=== PATIENT | male | born 1945 | race Caucasian/White ===

== ENCOUNTER 2017-03-27 13:59 | Inpatient (IN) | payer MEDICARE, OTHER ==
[~2017-03-27] VITALS: Ht 167.6 cm; Wt 89.4 kg
[2017-03-27] MEDS ORDERED: SODIUM CHLORIDE 0.9% 1L BAG IV* STA (16:59)
[2017-03-27] MEDS ORDERED: CEFTAZIDIME 2GM/50 ML (PMX) 50 ML IVPB ONE (17:00)
[2017-03-27 17:26] LABS: ADD SCAN DIFF NO
[2017-03-27 17:43] LABS: INR 1.02; PROTIME 13.4 Sec (12.2-14.2)
[2017-03-27 17:44] LABS: PARTIAL THROMBOPLASTIN TIME 30.3 Sec (25.0-35.0)
--- NOTE | 2017-03-27 17:44 | RADRPT ---
PROCEDURE: CHEST 1VW CLINICAL INDICATION: Painful urination TECHNIQUE: Single frontal view of the chest was obtained COMPARISON: None. FINDINGS: Left humeral head replacement is seen. The cardiac size is normal. Aortic vascular calcifications are demonstrated. There is no pulmonary vascular congestion. The lungs are clear. No consolidation, effusion, or pneumothorax. Mild degenerative changes of the visualized osseous structures are visualized. IMPRESSION: 1. No acute cardiopulmonary process. 2. Atherosclerosis. RPTAT:PP .Magnus Lucero MD, MD Date Time Electronically viewed and signed by .Magnus Lucero MD, MD on 03/27/2017 17:43 .V/
[2017-03-27 18:10] LABS: BASOPHILS % 0.2 % (0.0-2.0); EOSINOPHILS # 0.1 10^3/ul (0.0-0.5); EOSINOPHILS % 0.4 % (0.0-7.0); HEMATOCRIT 45.6 % (42.0-52.0); HEMOGLOBIN 15.3 g/dl (14.0-18.0); LYMPHOCYTES # 3.2 10^3/ul (0.8-2.9); LYMPHOCYTES % 25.6 % (15.0-51.0); MEAN CORPUSCULAR HEMOGLOBIN 27.8 pg (29.0-33.0); MEAN CORPUSCULAR HGB CONC 33.6 g/dl (32.0-37.0); MEAN CORPUSCULAR VOLUME 82.8 fl (82.0-101.0); MEAN PLATELET VOLUME 10.2 fl (7.4-10.4); MONOCYTE # 0.6 10^3/ul (0.3-0.9); MONOCYTES % 4.9 % (0.0-11.0); NEUTROPHIL # 8.5 10^3/ul (1.6-7.5); PLATELET COUNT 350 10^3/UL (140-415); RED BLOOD COUNT 5.51 10^6/ul (4.70-6.10); RED CELL DISTRIBUTION WIDTH 14.6 % (11.5-14.5); WHITE BLOOD COUNT 12.5 10^3/ul (4.8-10.8)
[2017-03-27 18:30] VITALS: TEMP 98.1
[2017-03-27] MEDS ORDERED: ACETAMINOPHEN 325 MG TAB PO PRN (18:30)
[2017-03-27] MEDS ORDERED: ONDANSETRON 4 MG INJ IV PRN ×2 (18:30→19:00)
[2017-03-27 19:01] LABS: ALBUMIN 4.4 g/dl (3.3-4.9); ALBUMIN/GLOBULIN RATIO 1.33; BILIRUBIN,INDIRECT 0.3 mg/dl (0-1.1); BILIRUBIN,TOTAL 0.3 mg/dl (0.2-1.3); CALCIUM 9.7 mg/dl (8.4-10.2); CREATININE 0.94 mg/dl (0.61-1.24); POTASSIUM 4.6 mmol/L (3.5-5.1); TOTAL PROTEIN 7.7 g/dl (6.1-8.1)
--- NOTE | 2017-03-27 19:31 | ERA ---
ER Documentation Chief Complaint Date/Time DATE: 03/27/17 TIME: 19:27 Chief Complaint URINE RETENTION AND PAIN WITH URINATION HPI 71yoM with a history of BPH who presents after Dr. Lewis, his urologist noted he had a complicated urinary tract infection. The patient had a urinalysis that showed evidence of Pseudomonas resistant to multiple antibiotics. The patient has no complaints though he arrives with tachycardia. He denies any fevers, chills, chest pain, shortness of breath. Dr. Lewis would like the patient admitted for antibiotics and TURP in several days. ROS All systems reviewed and are negative except as per history of present illness. Allergies Allergies: Coded Allergies: No Known Drug Allergies (Verified Allergy, Unknown, 03/27/17) PMhx/Soc History of Surgery: Yes (bilat shoulder replacement) Anesthesia Reaction: No Hx Neurological Disorder: No Hx Respiratory Disorders: No Hx Cardiac Disorders: Yes (HTN, ARRHYTHMIA) Hx Psychiatric Problems: No Hx Miscellaneous Medical Probl: Yes (DM, BPH) Hx Alcohol Use: No Hx Substance Use: No Hx Tobacco Use: No Smoking Status: Former smoker FmHx Family History: No diabetes Physical Exam Vitals Vital Signs Date Time Temp Pulse Resp B/P Pulse Ox O2 Delivery O2 Flow Rate FiO2 03/27/17 18:30 98.1 106 16 147/77 100 Room Air 03/27/17 14:08 97.6 130 20 133/80 97 Physical Exam General: Well developed, well nourished, no acute distress Head: Normocephalic, atraumatic. Eyes: Pupils equally reactive, EOM intact ENT: Moist mucous membranes Neck: Supple, no lymphadenopathy Respiratory: Lungs clear bilaterally, no distress Cardiovascular: Tachycardia, no murmurs, rubs, or gallops Abdominal: Soft, non-tender, non-distended, no peritoneal signs : Deferred MSK: No edema, no unilateral swelling, 5/5 strength Neurologic: Alert and oriented, moving all extremities, normal speech, no focal weakness, no cerebellar signs Skin: No rash Psych: Normal mood Result Diagram: 03/27/17 1650 03/27/17 1650 Results 24 hrs Laboratory Tests Test 03/27/17 16:50 03/27/17 17:00 White Blood Count 12.510^3/ul Red Blood Count 5.5110^6/ul Hemoglobin 15.3g/dl Hematocrit 45.6% Mean Corpuscular Volume 82.8fl Mean Corpuscular Hemoglobin 27.8pg Mean Corpuscular Hemoglobin Concent 33.6g/dl Red Cell Distribution Width 14.6% Platelet Count 50231^3/UL Mean Platelet Volume 10.2fl Neutrophils % 68.0% Lymphocytes % 25.6% Monocytes % 4.9% Eosinophils % 0.4% Basophils % 0.2% Nucleated Red Blood Cells % 0.0/100WBC Neutrophils # 8.510^3/ul Lymphocytes # 3.210^3/ul Monocytes # 0.610^3/ul Eosinophils # 0.110^3/ul Basophils # 0.010^3/ul Nucleated Red Blood Cells # 0.010^3/ul Prothrombin Time 13.4Sec Prothrombin Time Ratio 1.0 INR International Normalized Ratio 1.02 Activated Partial Thromboplast Time 30.3Sec Sodium Level 136mmol/L Potassium Level 4.6mmol/L Chloride Level 102mmol/L Carbon Dioxide Level 25mmol/L Anion Gap 14 Blood Urea Nitrogen 22mg/dl Creatinine 0.94mg/dl Glucose Level 207mg/dl Calcium Level 9.7mg/dl Total Bilirubin 0.3mg/dl Direct Bilirubin 0.00mg/dl Indirect Bilirubin 0.3mg/dl Aspartate Amino Transf (AST/SGOT) 14IU/L Alanine Aminotransferase (ALT/SGPT) 35IU/L Alkaline Phosphatase 59IU/L Total Protein 7.7g/dl Albumin 4.4g/dl Globulin 3.30g/dl Albumin/Globulin Ratio 1.33 Lactic Acid Level 1.9mmol/L Current Medications Medications (Trade) Dose Ordered Sig/Дмитрий Route PRN Reason Start Time Stop Time Status Last Admin Dose Admin Sodium Chloride 2700 ml 2,700 ml BOLUS OVER 2 HOURS STAT IV* 03/27/17 16:59 03/27/17 17:01 DC 03/27/17 17:18 Ceftazidime/ Dextrose (Fortaz 2gm/50 ml (Pmx)) 50 ml @ 100 mls/hr ONCE ONCE IVPB 03/27/17 17:00 03/27/17 17:29 DC 03/27/17 17:37 Ondansetron HCl (Zofran Inj) 4 mg BRIDGE ORDER PRN IV NAUSEA AND/OR VOMITING 03/27/17 18:30 03/28/17 18:29 Acetaminophen (Tylenol Tab) 650 mg ER BRIDGE PRN PO MILD PAIN/FEVER 03/27/17 18:30 03/28/17 18:29 Lorazepam (Ativan) 0.5 mg ONCE ONCE IV 03/27/17 19:00 03/27/17 19:01 UNV Morphine Sulfate 2 mg 2 mg Q4H PRN IV pain 03/27/17 19:00 UNV Ceftazidime (Fortaz 1gm/50 ml (Pmx)) 50 ml @ 100 mls/hr Q8 IVPB 03/27/17 22:00 UNV Ondansetron HCl (Zofran Inj) 4 mg Q6H PRN IV NAUSEA AND/OR VOMITING 03/27/17 19:00 UNV Famotidine (Pepcid) 20 mg BID PO 03/27/17 21:00 UNV Insulin Aspart (Novolog Insulin Pen) NOVOLOG *MODERATE* ALGORITHM WITH MEALS BEDTIME SC 03/27/17 21:00 UNV Miscellaneous Information (* Miscellaneous Pharmacy Order) HYPOGLYCEMIA PROTOCOL w... ONCE ONCE XX 03/27/17 19:00 03/27/17 19:01 UNV Miscellaneous Information (* Miscellaneous Pharmacy Order) Discontinue all previ... ONCE ONCE XX 03/27/17 19:00 03/27/17 19:01 UNV Empaglifozin (Jardiance) 10 mg DAILY@08 PO 03/28/17 08:00 UNV Metformin HCl (Glucophage) 500 mg BID WITH MEALS PO 03/28/17 08:00 UNV Amlodipine Besylate (Norvasc) 10 mg DAILY PO 03/28/17 09:00 UNV Procedures/MDM EKG, MONITORS, & DIAGNOSTIC IMAGING: EKG: I reviewed and interpreted a 12-lead EKG. Rhythm: Slight sinus tachycardia Ectopy: None Intervals: No abnormalities ST segments: No elevations or depressions T waves: No contiguous inversions Chest x-ray: I reviewed and interpreted a 1 view of the chest Mediastinum: No enlargement Cardiac silhouette: No cardiomegaly Airspace: Clear lung solorzano bilaterally without evidence of pneumothorax Bones: No evidence of fracture LAB INTERPRETATION: Leukocytosis of 12.5, normal lactic acid MEDICAL DECISION MAKING: The patient presents with complicated UTI and tachycardia. He will need sepsis screening. The patient is otherwise hemodynamically stable and well-appearing is a benign abdominal examination. The patient sensitivities showed sensitivity to ceftazidime. ER COURSE: Blood cultures been taken. The patient was given IV fluids. The patient has evidence of Sirs with a source consistent with sepsis but no evidence of endorgan dysfunction. This is not consistent with severe sepsis. The patient has received a 30/kg bolus of saline. Blood cultures been taken the patient was given ceftaz. He remains hemodynamically stable and does not require pressors or central line. Heart rate is improved. I kept the patient and/or family informed of laboratory and diagnostic imaging results throughout the emergency room course. DISPOSITION PLAN: Medical surgical admission CONSULTATION: Accepting care team and consultations: I discussed the current laboratory data, diagnostic imaging and emergency care provided. Admitting team: Dr. Romero Admitting team indication: Insurance directed Consulting services: Dr. Lewis, urology Of note the patient does not meet severe sepsis criteria in the emergency department therefore does not require repeat volume assessment. Departure Diagnosis: Primary Impression: Urinary tract infection Qualified Code: N30.00 - Acute cystitis without hematuria Additional Impression: Sepsis Qualified Code: A41.52 - Sepsis due to Pseudomonas species Condition: Stable SEVEN LAUREN MD March 27, 2017 19:31
[2017-03-27] MEDS ORDERED: LORAZEPAM 2 MG INJ IV ONE (19:42)
[2017-03-27] MEDS ORDERED: AMLO-147 PO (19:48)
[2017-03-27] MEDS ORDERED: EMPA10TA PO (19:49)
[2017-03-27] MEDS ORDERED: IBUP400T22 PO (19:50)
[2017-03-27] MEDS ORDERED: METO100T13 PO (19:51)
[2017-03-27] MEDS ORDERED: MTF1000T PO (19:51)
[2017-03-27] MEDS ORDERED: TAMS0.4C2 PO (19:51)
[2017-03-27] MEDS ORDERED: GLIM2TAB PO (19:52)
[2017-03-27] MEDS ORDERED: ENAL5TAB PO (19:52)
[2017-03-27] MEDS ORDERED: DEXTROSE 50% 50 ML SYRINGE IV PRN ×2 (20:00)
[2017-03-27] MEDS ORDERED: GLUCOSE GEL 15 GRAM TUBE BUCCAL PRN (20:00)
[2017-03-27] MEDS ORDERED: GLUCOSE GEL 15 GRAM TUBE PO PRN ×2 (20:00)
[2017-03-27] MEDS ORDERED: GLUCAGON 1 MG INJ IM PRN (20:00)
[2017-03-27 21:30] VITALS: BP 133/79; PULSE 88; RESP 20
[2017-03-27] MEDS: INSULIN ASPART [NOVOLOG] 3 ML PEN SC SCH (22:00)
[2017-03-27 22:20] VITALS: Ht 167.6 cm; Wt 89.4 kg
--- NOTE | 2017-03-28 01:26 | CONS ---
DATE OF ADMISSION: 03/27/2017 DATE OF CONSULTATION: 03/27/2017 ADMITTING PHYSICIAN: Dr. Byron Romero Dear Dr. Romero: Thank you for helping me and allowing me to help care for this patient. HISTORY OF PRESENT ILLNESS: This is a 71-year-old male who has a history of an enlarged prostate an d has undergone transurethral microwave treatment of the prostate 2 years ago by another urologist, Dr. Curry. However, the patient states that he is still having problems and he does have recurre nt urinary tract infection that is not responding to medications at home, in fact a urine culture th at I did recently on him showed that he has Pseudomonas and that is resistant to oral antibiotic. T he patient states that he has nocturia about 10 times during the night and during the day he does h[place] ve urinary frequency, dysuria, urgency, and sometimes few drops of urine comes out before onto his u nderwear before he reaches the bathroom. PAST MEDICAL HISTORY: He is known to have diabetes type 2 and history of hypertension. The patient denies any history of dyslipidemia. PAST SURGICAL HISTORY: He has had prostate biopsy 2 years ago before undergoing the transurethral m icrowave treatment of the prostate and he does have mild elevation of the PSA at 4.1 and that could be related to the fact that he does have an infection. ALLERGIES: HE HAS NO DRUG ALLERGIES. SOCIAL HISTORY: He does not smoke or drink any alcohol. He, however, does have some cardiac arrhyt hmias. MEDICATIONS: He has been on at home include: 1. Metformin 850 mg twice a day. 2. Glimepiride 2 mg twice a day. 3. Norvasc 10 mg daily. 4. Metoprolol 100 mg daily. 5. Tamsulosin 0.4 mg daily. 6. Vasotec 5 mg daily. 7. Finasteride 5 mg daily. PHYSICAL EXAMINATION: GENERAL: Reveals an elderly male who weighs 87 kg and he is 66 inches tall. VITAL SIGNS: His temperature is 98.1, blood pressure 147/77, pulse is 106, respirations are 16. HEAD AND NECK: Unremarkable. There is no cervical adenopathy. Neck is supple. ABDOMEN: Soft. There is no abdominal mass palpable. GENITALIA: External genitalia are normal. RECTAL: Examination revealed large and soft prostate. The patient was worked up in my office before on March 21 and his postvoid residual was 91 mL and the prostate was large and it was about 62 g. The urine culture did show more than 100,000 colony p er mL of Pseudomonas aeruginosa that is sensitive to cefepime, sensitive to ceftazidime, resistant t o Cipro, resistant to gentamicin, sensitive to imipenem, resistant to Levaquin, sensitive to piperac illin tazobactam and sensitive to tobramycin. IMPRESSION: Persistent urinary tract infection with Pseudomonas aeruginosa that is resistant to the oral antibiotic and the patient does have an enlarged prostate with high postvoid residual and that could be the reason for him to keep having the infections. Because of the high postvoid residual, also he could have the bacteria into his prostate. PLAN: The plan is to give him the IV antibiotics and also after about 4 days of IV antibiotic, I sh all go ahead and do a transurethral resection of the prostate on him. I have discussed these with marielos almanza in detail as well as with his daughter, Shanna. I explained to them the benefits, the results and that most likely he will do better and he will do good; however, there is no guarantee that he will not have any more infection and that he will be able to empty his bladder completely but I think wi th the obstruction that he has, the high postvoid residual and the fact that he has not had the intr avenous antibiotic to manage this infection, he should hopefully respond well. I will continue heidy andrea care of his urological problem and I do thank you for helping in his medical management. Dictated By: GABRIEL CORRAL/NAIMA Conf#: [id number] DID#: [id number]
--- NOTE | 2017-03-28 02:00 | HP ---
DATE OF ADMISSION: 03/27/2017 PRESENTING COMPLAINT: The patient was sent by urologist, Dr. Lewis, for admission. HISTORY OF PRESENTING COMPLAINT: A 71-year-old male with a history of BPH who has been having urina ry symptoms and has been worked up by the urologist, Dr. Lewis, as an outpatient. The patient had recently had a urinalysis and urine culture done by Dr. Lewis and was treated with oral antibioti cs Keflex. However, upon review of the urine culture results, it was found to grow pseudomonas that was resistant to multiple oral antibiotics; hence, Dr. Lewis sent him in for IV antibiotic regime n. The plan also is that the patient would get a TURP procedure while he is in house. At this time , the patient has no other new complaints. There is no fever. He denies abdominal pain. He is sli ghtly anxious about his hospitalization. Denies chest pain. Denies history of . Denies heart attacks or stroke. PAST MEDICAL HISTORY: High blood pressure, diabetes mellitus, BPH. PAST SURGICAL HISTORY: He has had bilateral shoulder surgery. ALLERGIES: NO KNOWN DRUG ALLERGIES. SOCIAL HISTORY: Denies tobacco, alcohol or illicit drug use. FAMILY HISTORY: Positive for stroke in his father and his brother. HOME MEDICATIONS: Have been reviewed and reconciled. PHYSICAL EXAMINATION: VITAL SIGNS: Temperature 98.1, pulse 130, respirations 20, blood pressure 133/80, saturations 97% o n room air. GENERAL: The patient was somewhat anxious, per his daughter. He has never been hospitalized before and this was of concern to him. HEENT: Head is normocephalic. Pupils are equal round and reactive. Mucous membranes are moist. P osterior pharynx is clear of exudate. NECK: Supple without adenopathy or JVD. CHEST: Clear to auscultation. CARDIOVASCULAR: S1, S2. No murmurs. ABDOMEN: Soft, nontender, nondistended with normoactive bowel sounds. EXTREMITIES: No lower extremity edema. SKIN: Devoid of rash or jaundice. PSYCHIATRIC: Anxious. LABORATORY VALUES: Leukocytosis of 12,000, normal hemoglobin, normal platelet count. On his basic metabolic profile, his BUN was also slightly elevated at 22 and his glucose was elevated at . His liver profile was negative. Lactic acid was normal. Urinalysis was reviewed and highly suggest ethan of a UTI and culture results were also reviewed and it did show multidrug resistant Pseudomonas aeruginosa. IMAGING: Chest x-ray showed atherosclerosis. EKG showed normal sinus rhythm. ASSESSMENT: This is a 71-year-old male with: 1. Multidrug resistant Pseudomonas urinary tract infection. 2. Benign prostatic hypertrophy. 3. Diabetes with suboptimal control. 4. High blood pressure with good control. 5. Mild tachycardia, likely as the result of mild systemic inflammatory response syndrome secondary to #1. PLAN OF CARE: To begin empiric IV antibiotics based on sensitive profile. Repeat cultures. Notify Dr. Lewis that the patient is in the hospital. As mentioned earlier, I believe the patient is pl anned for TURP during this hospitalization; however, we will defer to Dr. Lewis on that. For prop hylaxis, he will be on Pepcid and SCDs. I have spoken with the patient in detail. I have spoken wi th his daughter and we have discussed plan of care and they have both verbalized understanding. Dictated By: JACINDA TSANG MD BA/NTS Conf#: [id number] DID#: [id number]
[2017-03-28] MEDS: CEFTAZIDIME 1GM/50 ML (PMX) 50 ML IVPB SCH ×3 (02:18→15:09)
[2017-03-28] MEDS: INSULIN ASPART [NOVOLOG] 3 ML PEN SC SCH ×4 (07:51→22:00)
[2017-03-28 07:59] VITALS: BP 156/75; RESP 18
[2017-03-28] MEDS: AMLODIPINE 10 MG TAB PO SCH (08:23)
[2017-03-28] MEDS: metFORMIN 500 MG TAB PO SCH ×2 (08:23→18:09)
[2017-03-28] MEDS: FAMOTIDINE 20 MG TAB PO SCH ×2 (08:23→21:59)
[2017-03-28] MEDS: EMPAGLIFLOZIN 10 MG TABLET PO SCH (08:23)
[2017-03-28 10:48] VITALS: BP 138/70; PULSE 80
[2017-03-28 10:49] LABS: ADD SCAN DIFF NO
[2017-03-28 10:55] LABS: BASOPHILS % 0.3 % (0.0-2.0); EOSINOPHILS # 0.1 10^3/ul (0.0-0.5); EOSINOPHILS % 0.9 % (0.0-7.0); HEMATOCRIT 41.8 % (42.0-52.0); HEMOGLOBIN 14.1 g/dl (14.0-18.0); LYMPHOCYTES # 2.6 10^3/ul (0.8-2.9); LYMPHOCYTES % 29.2 % (15.0-51.0); MEAN CORPUSCULAR HEMOGLOBIN 27.6 pg (29.0-33.0); MEAN CORPUSCULAR HGB CONC 33.7 g/dl (32.0-37.0); MEAN CORPUSCULAR VOLUME 81.8 fl (82.0-101.0); MEAN PLATELET VOLUME 9.9 fl (7.4-10.4); MONOCYTE # 0.5 10^3/ul (0.3-0.9); MONOCYTES % 5.9 % (0.0-11.0); NEUTROPHIL # 5.5 10^3/ul (1.6-7.5); NEUTROPHILS % 62.7 % (39.0-77.0); PLATELET COUNT 315 10^3/UL (140-415); RED BLOOD COUNT 5.11 10^6/ul (4.70-6.10); RED CELL DISTRIBUTION WIDTH 14.1 % (11.5-14.5); WHITE BLOOD COUNT 8.8 10^3/ul (4.8-10.8)
[2017-03-28 12:02] LABS: THYROID STIMULATING HORMONE 1.38 MIU/L (0.465-4.680)
[2017-03-28 12:11] LABS: ALBUMIN 3.8 g/dl (3.3-4.9); BILIRUBIN,INDIRECT 0.5 mg/dl (0-1.1); BILIRUBIN,TOTAL 0.5 mg/dl (0.2-1.3); CALCIUM 8.9 mg/dl (8.4-10.2); CHOL/HDL RATIO 5.9 RATIO; CREATININE 0.72 mg/dl (0.61-1.24); MAGNESIUM 1.9 mg/dl (1.7-2.5); TOTAL PROTEIN 7.2 g/dl (6.1-8.1)
--- NOTE | 2017-03-28 14:14 | PN ---
Date/Time of Note Date/Time of Note DATE: 03/28/17 TIME: 14:11 Assessment/Plan VTE Prophylaxis VTE Prophylaxis Intervention: ambulation, SCD's Lines/Catheters IV [facility]from [facility] Saline Lock Urinary Cath still in place: No Assessment/Plan Assessment/Plan This is a 71-year-old male with: 1. Multidrug resistant Pseudomonas urinary tract infection. 2. Benign prostatic hypertrophy with LUTS 3. Diabetes type 2; good control. 4. High blood pressure with good control. 5. Mild tachycardia, likely as the result of mild systemic inflammatory response syndrome secondary to #1. PLAN OF CARE: * Continue abx / supportive care / TURP planned for Friday. Subjective 24 Hr Interval Summary Free Text/Dictation Patient seen and evaluated. Complains of dysuria, poor urinary stream. Refusing Pardo catheter however. Exam/Review of Systems Vital Signs Vitals Vital Signs Date Time Temp Pulse Resp B/P Pulse Ox O2 Delivery O2 Flow Rate FiO2 03/28/17 10:48 80 138/70 03/28/17 07:59 97.8 18 97 03/27/17 21:30 Room Air Intake and Output 03/27/17 03/27/17 03/28/17 15:00 23:00 07:00 Intake Total 240 ml Balance 240 ml Exam GENERAL: still mildly anxious, A and O X3, afebrile, no distress HEENT: Head is normocephalic. Pupils are equal round and reactive. Mucous membranes are moist. Posterior pharynx is clear of exudate. NECK: Supple without adenopathy or JVD. CHEST: Clear to auscultation. CARDIOVASCULAR: S1, S2. No murmurs. ABDOMEN: Soft, nontender, nondistended with normoactive bowel sounds. EXTREMITIES: No lower extremity edema. SKIN: Devoid of rash or jaundice. PSYCHIATRIC: Anxious. Results Result Diagram: 03/28/17 1025 03/28/17 1025 Results 24 hrs Laboratory Tests Test 03/27/17 16:50 03/27/17 17:00 03/27/17 18:59 03/27/17 20:52 White Blood Count 12.5 H Red Blood Count 5.51 Hemoglobin 15.3 Hematocrit 45.6 Mean Corpuscular Volume 82.8 Mean Corpuscular Hemoglobin 27.8 L Mean Corpuscular Hemoglobin Concent 33.6 Red Cell Distribution Width 14.6 H Platelet Count 350 Mean Platelet Volume 10.2 Neutrophils % 68.0 Lymphocytes % 25.6 Monocytes % 4.9 Eosinophils % 0.4 Basophils % 0.2 Nucleated Red Blood Cells % 0.0 Neutrophils # 8.5 H Lymphocytes # 3.2 H Monocytes # 0.6 Eosinophils # 0.1 Basophils # 0.0 Nucleated Red Blood Cells # 0.0 Prothrombin Time 13.4 Prothrombin Time Ratio 1.0 INR International Normalized Ratio 1.02 Activated Partial Thromboplast Time 30.3 Sodium Level 136 Potassium Level 4.6 Chloride Level 102 Carbon Dioxide Level 25 Anion Gap 14 Blood Urea Nitrogen 22 H Creatinine 0.94 Glucose Level 207 Calcium Level 9.7 Total Bilirubin 0.3 Direct Bilirubin 0.00 Indirect Bilirubin 0.3 Aspartate Amino Transf (AST/SGOT) 14 L Alanine Aminotransferase (ALT/SGPT) 35 Alkaline Phosphatase 59 Total Protein 7.7 Albumin 4.4 Globulin 3.30 H Albumin/Globulin Ratio 1.33 Lactic Acid Level 1.9 1.4 1.7 Test 03/27/17 22:11 03/28/17 07:49 03/28/17 10:25 03/28/17 11:51 Bedside Glucose 163 121 92 White Blood Count 8.8 # Red Blood Count 5.11 Hemoglobin 14.1 Hematocrit 41.8 L Mean Corpuscular Volume 81.8 L Mean Corpuscular Hemoglobin 27.6 L Mean Corpuscular Hemoglobin Concent 33.7 Red Cell Distribution Width 14.1 Platelet Count 315 Mean Platelet Volume 9.9 Neutrophils % 62.7 Lymphocytes % 29.2 Monocytes % 5.9 Eosinophils % 0.9 Basophils % 0.3 Nucleated Red Blood Cells % 0.0 Neutrophils # 5.5 Lymphocytes # 2.6 Monocytes # 0.5 Eosinophils # 0.1 Basophils # 0.0 Nucleated Red Blood Cells # 0.0 Sodium Level 134 L Potassium Level 4.0 Chloride Level 102 Carbon Dioxide Level 23 Anion Gap 13 Blood Urea Nitrogen 14 Creatinine 0.72 Glucose Level 168 Hemoglobin A1c 7.7 H Calcium Level 8.9 Magnesium Level 1.9 Total Bilirubin 0.5 Direct Bilirubin 0.00 Indirect Bilirubin 0.5 Aspartate Amino Transf (AST/SGOT) 27 # Alanine Aminotransferase (ALT/SGPT) 33 Alkaline Phosphatase 50 Total Protein 7.2 Albumin 3.8 Triglycerides Level 130 Cholesterol Level 167 LDL Cholesterol, Calculated 113 HDL Cholesterol 28 L Cholesterol/HDL Ratio 5.9 Thyroid Stimulating Hormone (TSH) 1.380 Medications Medications Current Medications Morphine Sulfate 2 mg 2 mg Q4H PRN IV pain; Start 03/27/17 at 19:00 Ceftazidime (Fortaz 1gm/50 ml (Pmx)) 50 ml @ 100 mls/hr Q8 IVPB Last administered on 03/28/17 05:26; Admin Dose 100 MLS/HR; Start 03/27/17 at 23:30 Ondansetron HCl (Zofran Inj) 4 mg Q6H PRN IV NAUSEA AND/OR VOMITING; Start 03/27 at 19:00 Famotidine (Pepcid) 20 mg BID PO Last administered on 03/28/17 08:23; Admin Dose 20 MG; Start 03/28/17 at 09:00 Empaglifozin (Jardiance) 10 mg DAILY@08 PO Last administered on 03/28/17 08:23 ; Admin Dose 10 MG; Start 03/28/17 at 08:00 Amlodipine Besylate (Norvasc) 10 mg DAILY PO Last administered on 03/28/17 08: 23; Admin Dose 10 MG; Start 03/28/17 at 09:00 Miscellaneous Information 1 ea NOTE XX ; Start 03/27/17 at 20:00 Glucose (Glutose) 15 gm Q15M PRN PO DECREASED GLUCOSE; Start 03/27/17 at 20:00 Glucose (Glutose) 22.5 gm Q15M PRN PO DECREASED GLUCOSE; Start 03/27/17 at 20:00 Dextrose (D50w Syringe) 25 ml Q15M PRN IV DECREASED GLUCOSE; Start 03/27/17 at 20:00 Dextrose (D50w Syringe) 50 ml Q15M PRN IV DECREASED GLUCOSE; Start 03/27/17 at 20:00 Glucagon (Glucagen) 1 mg Q15M PRN IM DECREASED GLUCOSE; Start 03/27/17 at 20:00 Glucose (Glutose) 15 gm Q15M PRN BUCCAL DECREASED GLUCOSE; Start 03/27/17 at 20: 00 Tamsulosin HCl (Flomax) 0.4 mg DAILY@21 PO ; Start 03/28/17 at 21:00 JACINDA TSANG March 28, 2017 14:13
[2017-03-28 20:53] VITALS: BP 159/87; RESP 20
[2017-03-28] MEDS: TAMSULOSIN (SR) 0.4 MG CAP PO SCH (21:59)
[2017-03-29] MEDS: CEFTAZIDIME 1GM/50 ML (PMX) 50 ML IVPB SCH ×4 (00:02→21:38)
--- NOTE | 2017-03-29 05:00 | PN ---
DATE: 03/28/2017 SUBJECTIVE: Dysuria and urinary frequency and urinary tract infection. The patient is feeling bett er today. OBJECTIVE: VITAL SIGNS: His temperature is 97.8, blood pressure 138/70, pulse is 80, respiration is 18. ABDOMEN: Soft. There is no abdominal mass palpable. GENITOURINARY: External genitalia are normal. The patient is voiding and the urine is clear. LABORATORY DATA: CBC yesterday shows a white count of 12.5, today is 8.8, hemoglobin was 15.3, toda y is 14.1, platelet count 315,000. BUN is 14, creatinine 0.72, sodium 134, potassium 4.0, chloride 102, CO2 of 23. PT is 13.4 and INR is 1.02. The blood cultures are negative after 1 day. The ches t x-ray also no acute cardiopulmonary process. Atherosclerosis. IMPRESSION: Urinary tract infection with pseudomonas that is resistant to oral antibiotics and perla gn prostatic hypertrophy with obstruction. PLAN: To continue the intravenous antibiotic, and in about 3 days then we will do a cystoscopy and transurethral resection of the prostate with the hope that he empties his bladder better and to prev ent recurrence of his infections. Dictated By: GABRIEL CORRAL/NAIMA Conf#: [id number] DID#: [id number]
[2017-03-29 08:00] VITALS: BP 139/82; RESP 16
[2017-03-29] MEDS: INSULIN ASPART [NOVOLOG] 3 ML PEN SC SCH ×4 (08:00→21:00)
[2017-03-29] MEDS: EMPAGLIFLOZIN 10 MG TABLET PO SCH (08:28)
[2017-03-29] MEDS: AMLODIPINE 10 MG TAB PO SCH ×2 (08:29→08:34)
[2017-03-29] MEDS: metFORMIN 500 MG TAB PO SCH ×2 (08:29→17:46)
[2017-03-29] MEDS: FAMOTIDINE 20 MG TAB PO SCH ×2 (08:31→21:00)
--- NOTE | 2017-03-29 09:39 | PN ---
Date/Time of Note Date/Time of Note DATE: 03/29/17 TIME: 09:35 Assessment/Plan VTE Prophylaxis VTE Prophylaxis Intervention: SCD's Lines/Catheters IV [facility]from [facility] Saline Lock Urinary Cath still in place: No (surgery on 03/31/2017) Assessment/Plan Assessment/Plan This is a 71-year-old male with: 1. Multidrug resistant Pseudomonas urinary tract infection. 2. Benign prostatic hypertrophy with LUTS 3. Diabetes type 2; good control in house, A1C: 7.7 however 4. High blood pressure with good control. 5. Mild tachycardia, likely as the result of mild systemic inflammatory response syndrome secondary to #1 : improved PLAN OF CARE: * We discussed A1C and diabetic control, patient has good in-house control on his home regimen therefore the problem is likely poor dietary control at home. We discussed appropriate diet and will have hothouse worker consult to educate on a good low carbohydrate diet. We also discussed blood sugar goals, and I encouraged him that he was unable to meet his goals at home he needed to notify his primary doctor or integration technician to adjust his medicines. At this time however I will not be changing his dosing as he has good in-house control. * Continue abx / supportive care / TURP planned for Friday. Subjective 24 Hr Interval Summary Constitutional: improved (dysuria), no complaints Exam/Review of Systems Vital Signs Vitals Vital Signs Date Time Temp Pulse Resp B/P Pulse Ox O2 Delivery O2 Flow Rate FiO2 03/28/17 20:53 97.6 92 20 159/87 95 03/27/17 21:30 Room Air Intake and Output 03/28/17 03/28/17 03/29/17 15:00 23:00 07:00 Intake Total 890 ml 730 ml Output Total 1200 ml Balance -310 ml 730 ml Exam GENERAL: , A and O X3, afebrile, no distress HEENT: Head is normocephalic. Pupils are equal round and reactive. Mucous membranes are moist. Posterior pharynx is clear of exudate. NECK: Supple without adenopathy or JVD. CHEST: Clear to auscultation. CARDIOVASCULAR: S1, S2. No murmurs. ABDOMEN: Soft, nontender, nondistended with normoactive bowel sounds. EXTREMITIES: No lower extremity edema. SKIN: Devoid of rash or jaundice. PSYCHIATRIC: calm. Results Result Diagram: 5/5/17 1025 03/28/17 1025 Results 24 hrs Laboratory Tests Test 03/28/17 10:25 03/28/17 11:51 03/28/17 17:48 03/28/17 21:58 White Blood Count 8.8 # Red Blood Count 5.11 Hemoglobin 14.1 Hematocrit 41.8 L Mean Corpuscular Volume 81.8 L Mean Corpuscular Hemoglobin 27.6 L Mean Corpuscular Hemoglobin Concent 33.7 Red Cell Distribution Width 14.1 Platelet Count 315 Mean Platelet Volume 9.9 Neutrophils % 62.7 Lymphocytes % 29.2 Monocytes % 5.9 Eosinophils % 0.9 Basophils % 0.3 Nucleated Red Blood Cells % 0.0 Neutrophils # 5.5 Lymphocytes # 2.6 Monocytes # 0.5 Eosinophils # 0.1 Basophils # 0.0 Nucleated Red Blood Cells # 0.0 Sodium Level 134 L Potassium Level 4.0 Chloride Level 102 Carbon Dioxide Level 23 Anion Gap 13 Blood Urea Nitrogen 14 Creatinine 0.72 Glucose Level 168 Hemoglobin A1c 7.7 H Calcium Level 8.9 Magnesium Level 1.9 Total Bilirubin 0.5 Direct Bilirubin 0.00 Indirect Bilirubin 0.5 Aspartate Amino Transf (AST/SGOT) 27 # Alanine Aminotransferase (ALT/SGPT) 33 Alkaline Phosphatase 50 Total Protein 7.2 Albumin 3.8 Triglycerides Level 130 Cholesterol Level 167 LDL Cholesterol, Calculated 113 HDL Cholesterol 28 L Cholesterol/HDL Ratio 5.9 Thyroid Stimulating Hormone (TSH) 1.380 Bedside Glucose 92 107 120 Test 03/29/17 07:41 Bedside Glucose 141 Medications Medications Current Medications Morphine Sulfate 2 mg 2 mg Q4H PRN IV pain; Start 03/27/17 at 19:00 Ceftazidime (Fortaz 1gm/50 ml (Pmx)) 50 ml @ 100 mls/hr Q8 IVPB Last administered on 03/29/17 08:28; Admin Dose 100 MLS/HR; Start 03/27/17 at 23:30 Ondansetron HCl (Zofran Inj) 4 mg Q6H PRN IV NAUSEA AND/OR VOMITING; Start 03/27 at 19:00 Famotidine (Pepcid) 20 mg BID PO Last administered on 03/28/17 21:59; Admin Dose 20 MG; Start 03/28/17 at 09:00 Empaglifozin (Jardiance) 10 mg DAILY@08 PO Last administered on 03/29/17 08:28 ; Admin Dose 10 MG; Start 03/28/17 at 08:00 Amlodipine Besylate (Norvasc) 10 mg DAILY PO Last administered on 03/29/17 08: 34; Admin Dose 10 MG; Start 03/28/17 at 09:00 Miscellaneous Information 1 ea NOTE XX ; Start 03/27/17 at 20:00 Glucose (Glutose) 15 gm Q15M PRN PO DECREASED GLUCOSE; Start 03/27/17 at 20:00 Glucose (Glutose) 22.5 gm Q15M PRN PO DECREASED GLUCOSE; Start 03/27/17 at 20:00 Dextrose (D50w Syringe) 25 ml Q15M PRN IV DECREASED GLUCOSE; Start 03/27/17 at 20:00 Dextrose (D50w Syringe) 50 ml Q15M PRN IV DECREASED GLUCOSE; Start 03/27/17 at 20:00 Glucagon (Glucagen) 1 mg Q15M PRN IM DECREASED GLUCOSE; Start 03/27/17 at 20:00 Glucose (Glutose) 15 gm Q15M PRN BUCCAL DECREASED GLUCOSE; Start 03/27/17 at 20: 00 Tamsulosin HCl (Flomax) 0.4 mg DAILY@21 PO Last administered on 03/28/17 21:59 ; Admin Dose 0.4 MG; Start 03/28/17 at 21:00 JACINDA TSANG March 29, 2017 09:39
[2017-03-29 10:37] LABS: ADD SCAN DIFF NO
[2017-03-29 10:45] LABS: BASOPHILS % 0.2 % (0.0-2.0); EOSINOPHILS # 0.1 10^3/ul (0.0-0.5); EOSINOPHILS % 0.7 % (0.0-7.0); HEMATOCRIT 43.4 % (42.0-52.0); HEMOGLOBIN 14.5 g/dl (14.0-18.0); LYMPHOCYTES # 2.1 10^3/ul (0.8-2.9); LYMPHOCYTES % 24.8 % (15.0-51.0); MEAN CORPUSCULAR HEMOGLOBIN 27.4 pg (29.0-33.0); MEAN CORPUSCULAR HGB CONC 33.4 g/dl (32.0-37.0); MEAN CORPUSCULAR VOLUME 81.9 fl (82.0-101.0); MONOCYTE # 0.5 10^3/ul (0.3-0.9); MONOCYTES % 5.4 % (0.0-11.0); NEUTROPHIL # 5.7 10^3/ul (1.6-7.5); NEUTROPHILS % 68.3 % (39.0-77.0); PLATELET COUNT 304 10^3/UL (140-415); RED CELL DISTRIBUTION WIDTH 14.5 % (11.5-14.5); WHITE BLOOD COUNT 8.4 10^3/ul (4.8-10.8)
[2017-03-29 11:10] LABS: CALCIUM 9.3 mg/dl (8.4-10.2); CREATININE 0.83 mg/dl (0.61-1.24); POTASSIUM 4.2 mmol/L (3.5-5.1)
--- NOTE | 2017-03-29 12:12 | PN ---
DATE: 03/29/2017 SUBJECTIVE: The patient complains of dysuria and he thinks it is much less than it was before. The patient does have a pseudomonas infection in his urine and he has been on ceftazidime. OBJECTIVE: VITAL SIGNS: Temperature is 98.2, blood pressure 139/82, pulse is 96, respirations 16. ABDOMEN: Soft. There is no abdominal mass palpable. GENITALIA: The external genitalia are normal. The urine is clear. LABORATORY: CBC today shows a white count of 8.4, hemoglobin 14.5, hematocrit 43.4, platelet 304,0 00. The BUN is 18, creatinine 0.83. The electrolytes are normal. PT 13.4, INR 1.02. Chest x-ray, no acute cardiopulmonary process. IMPRESSION: 1. Urinary tract infection with pseudomonas, resistant to oral antibiotic. 2. Enlarged prostate with obstruction. PLAN: Continue the IV antibiotics and on Friday, 2 days from now. I will do a cystoscopy and trans urethral resection of the prostate so he can empty his bladder better and have a better chance of cl earing the infection. Dictated By: GABRIEL CORRAL/NAIMA Conf#: [id number] DID#: [id number]
[2017-03-29] MEDS: DOCUSATE SODIUM 100 MG CAP PO SCH (21:35)
[2017-03-29] MEDS: POLYETHYLENE GLYCOL 17 GM PACKET GTB SCH (21:35)
[2017-03-29] MEDS: TAMSULOSIN (SR) 0.4 MG CAP PO SCH (21:35)
[2017-03-29 22:18] VITALS: BP 144/72; RESP 18
[2017-03-30] MEDS: CEFTAZIDIME 1GM/50 ML (PMX) 50 ML IVPB SCH ×3 (05:32→21:11)
[2017-03-30] MEDS: INSULIN ASPART [NOVOLOG] 3 ML PEN SC SCH ×4 (08:00→20:36)
[2017-03-30 08:12] VITALS: BP 137/76; RESP 20
[2017-03-30] MEDS: POLYETHYLENE GLYCOL 17 GM PACKET GTB SCH ×3 (09:00→20:38)
[2017-03-30 09:23] LABS: ADD SCAN DIFF NO
[2017-03-30 09:45] LABS: BASOPHILS % 0.1 % (0.0-2.0); EOSINOPHILS # 0.2 10^3/ul (0.0-0.5); EOSINOPHILS % 1.7 % (0.0-7.0); HEMATOCRIT 43.3 % (42.0-52.0); HEMOGLOBIN 14.3 g/dl (14.0-18.0); LYMPHOCYTES % 32.6 % (15.0-51.0); MEAN CORPUSCULAR HEMOGLOBIN 27.4 pg (29.0-33.0); MEAN PLATELET VOLUME 10.6 fl (7.4-10.4); MONOCYTE # 0.6 10^3/ul (0.3-0.9); MONOCYTES % 6.5 % (0.0-11.0); NEUTROPHIL # 5.3 10^3/ul (1.6-7.5); NEUTROPHILS % 58.4 % (39.0-77.0); PLATELET COUNT 313 10^3/UL (140-415); RED BLOOD COUNT 5.22 10^6/ul (4.70-6.10); RED CELL DISTRIBUTION WIDTH 14.3 % (11.5-14.5)
[2017-03-30] MEDS: metFORMIN 500 MG TAB PO SCH ×2 (09:47→17:39)
[2017-03-30] MEDS: EMPAGLIFLOZIN 10 MG TABLET PO SCH (09:47)
[2017-03-30] MEDS: FAMOTIDINE 20 MG TAB PO SCH ×2 (09:48→20:37)
[2017-03-30] MEDS: DOCUSATE SODIUM 100 MG CAP PO SCH ×2 (09:48→20:37)
[2017-03-30] MEDS: AMLODIPINE 10 MG TAB PO SCH (09:48)
[2017-03-30 10:11] LABS: POTASSIUM 3.9 mmol/L (3.5-5.1)
[2017-03-30 10:14] LABS: CALCIUM 9.1 mg/dl (8.4-10.2); CREATININE 0.83 mg/dl (0.61-1.24)
--- NOTE | 2017-03-30 17:47 | PN ---
Date/Time of Note Date/Time of Note DATE: 03/30/17 TIME: 17:46 Assessment/Plan VTE Prophylaxis VTE Prophylaxis Intervention: SCD's Lines/Catheters IV C[facility]ter Type (from [facility] Saline Lock Urinary Cath still in place: No Assessment/Plan Assessment/Plan This is a 71-year-old male with: 1. Multidrug resistant Pseudomonas urinary tract infection on treatment 2. Benign prostatic hypertrophy with LUTS 3. Diabetes type 2; good control in house, A1C: 7.7 however 4. High blood pressure with good control. 5. Mild tachycardia, likely as the result of mild systemic inflammatory response syndrome secondary to #1 : improved PLAN OF CARE: * We discussed A1C and diabetic control, patient has good in-house control on his home regimen therefore the problem is likely poor dietary control at home. We discussed appropriate diet and will have fishing accessories maker consult to educate on a good low carbohydrate diet. We also discussed blood sugar goals, and I encouraged him that he was unable to meet his goals at home he needed to notify his primary doctor or bow maker custom to adjust his medicines. At this time however I will not be changing his dosing as he has good in-house control. * Continue abx / supportive care / TURP planned for Friday. Subjective 24 Hr Interval Summary Constitutional: no complaints Exam/Review of Systems Vital Signs Vitals Vital Signs Date Time Temp Pulse Resp B/P Pulse Ox O2 Delivery O2 Flow Rate FiO2 03/30/17 08:12 97.9 89 20 137/76 95 03/27/17 21:30 Room Air Intake and Output 03/29/17 03/29/17 03/30/17 15:00 23:00 07:00 Intake Total 50 ml 790 ml 530 ml Balance 50 ml 790 ml 530 ml Exam GENERAL: , A and O X3, afebrile, no distress HEENT: Head is normocephalic. Pupils are equal round and reactive. Mucous membranes are moist. Posterior pharynx is clear of exudate. NECK: Supple without adenopathy or JVD. CHEST: Clear to auscultation. CARDIOVASCULAR: S1, S2. No murmurs. ABDOMEN: Soft, nontender, nondistended with normoactive bowel sounds. EXTREMITIES: No lower extremity edema. SKIN: Devoid of rash or jaundice. PSYCHIATRIC: calm. Results Result Diagram: 03/30/17 0505 03/30/17 0505 Results 24 hrs Laboratory Tests Test 03/29/17 21:41 03/30/17 05:05 03/30/17 08:52 03/30/17 12:59 Bedside Glucose 119 174 146 White Blood Count 9.0 Red Blood Count 5.22 Hemoglobin 14.3 Hematocrit 43.3 Mean Corpuscular Volume 83.0 Mean Corpuscular Hemoglobin 27.4 L Mean Corpuscular Hemoglobin Concent 33.0 Red Cell Distribution Width 14.3 Platelet Count 313 Mean Platelet Volume 10.6 H Neutrophils % 58.4 Lymphocytes % 32.6 Monocytes % 6.5 Eosinophils % 1.7 Basophils % 0.1 Nucleated Red Blood Cells % 0.0 Neutrophils # 5.3 Lymphocytes # 3.0 H Monocytes # 0.6 Eosinophils # 0.2 Basophils # 0.0 Nucleated Red Blood Cells # 0.0 Sodium Level 138 Potassium Level 3.9 Chloride Level 101 Carbon Dioxide Level 24 Anion Gap 17 H Blood Urea Nitrogen 21 H Creatinine 0.83 Glucose Level 135 # Calcium Level 9.1 Prostate Specific Antigen 4.9 H Medications Medications Current Medications Morphine Sulfate 2 mg 2 mg Q4H PRN IV pain; Start 03/27/17 at 19:00 Ceftazidime (Fortaz 1gm/50 ml (Pmx)) 50 ml @ 100 mls/hr Q8 IVPB Last administered on 03/30/17 14:05; Admin Dose 100 MLS/HR; Start 03/27/17 at 23:30 Ondansetron HCl (Zofran Inj) 4 mg Q6H PRN IV NAUSEA AND/OR VOMITING; Start 03/27 at 19:00 Famotidine (Pepcid) 20 mg BID PO Last administered on 03/30/17 09:48; Admin Dose 20 MG; Start 03/28/17 at 09:00 Empaglifozin (Jardiance) 10 mg DAILY@08 PO Last administered on 03/30/17 09:47 ; Admin Dose 10 MG; Start 03/28/17 at 08:00 Amlodipine Besylate (Norvasc) 10 mg DAILY PO Last administered on 03/30/17 09: 48; Admin Dose 10 MG; Start 03/28/17 at 09:00 Miscellaneous Information 1 ea NOTE XX ; Start 03/27/17 at 20:00 Glucose (Glutose) 15 gm Q15M PRN PO DECREASED GLUCOSE; Start 03/27/17 at 20:00 Glucose (Glutose) 22.5 gm Q15M PRN PO DECREASED GLUCOSE; Start 03/27/17 at 20:00 Dextrose (D50w Syringe) 25 ml Q15M PRN IV DECREASED GLUCOSE; Start 03/27/17 at 20:00 Dextrose (D50w Syringe) 50 ml Q15M PRN IV DECREASED GLUCOSE; Start 03/27/17 at 20:00 Glucagon (Glucagen) 1 mg Q15M PRN IM DECREASED GLUCOSE; Start 03/27/17 at 20:00 Glucose (Glutose) 15 gm Q15M PRN BUCCAL DECREASED GLUCOSE; Start 03/27/17 at 20: 00 Tamsulosin HCl (Flomax) 0.4 mg DAILY@21 PO Last administered on 03/29/17 21:35 ; Admin Dose 0.4 MG; Start 03/28/17 at 21:00 Docusate Sodium (Colace) 100 mg BID PO Last administered on 03/30/17 09:48; Admin Dose 100 MG; Start 03/29/17 at 21:00 Polyethylene Glycol (Miralax) 17 gm BID GTB Last administered on 03/29/17 21:35 ; Admin Dose 17 GM; Start 03/29/17 at 21:00 JACINDA TSANG March 30, 2017 17:47
[2017-03-30] MEDS ORDERED: LUBIPROSTONE 24 MCG CAP PO PRN (19:00)
[2017-03-30] MEDS: TAMSULOSIN (SR) 0.4 MG CAP PO SCH (20:37)
[2017-03-30 20:50] VITALS: BP 146/76; RESP 20
[2017-03-31] VITALS (17 sets, daily range): BP systolic 147–170; BP diastolic 72–88; PULSE 78–99; RESP 9–18
--- NOTE | 2017-03-31 03:18 | PN ---
DATE: 03/30/2017 SUBJECTIVE: Urinary tract infection and benign prostatic hypertrophy. The patient has been complai sandip of dysuria; however, today he states that his dysuria has subsided as he has been on antibiotic and his urinary stream is better. OBJECTIVE VITAL SIGNS: His temperature is 97.9, blood pressure 137/76, pulse is 89, respiration 20. ABDOMEN: Soft. LABORATORY DATA: Blood cultures have been negative. The CBC shows a white count of 9.0, hemoglobin 14.3, hematocrit 43.3, platelet count is 313,000. BUN is 21, creatinine 0.83, sodium 138, potassiu m 3.9, chloride 101, CO2 24. PT is 13.4, INR 1.02. Chest x-ray is negative. IMPRESSION: Urinary tract infection and benign prostatic hypertrophy. The urinary tract infection is Pseudomonas aeruginosa that is resistant to oral antibiotic, but it is sensitive to ceftazidime w hich we have the patient on. PLAN: Continue the present regimen of antibiotic. Tomorrow evening we will do a cystoscopy and tra nsurethral resection of the prostate to eliminate any obstructive element so he could empty his blad demetria better, and he will have less postvoid residual and less risk of persistent urinary tract infect ion. Dictated By: GABRIEL CORRAL/NAIMA Conf#: [id number] DID#: [id number]
[2017-03-31] MEDS: CEFTAZIDIME 1GM/50 ML (PMX) 50 ML IVPB SCH ×3 (05:27→17:53)
[2017-03-31] MEDS: INSULIN ASPART [NOVOLOG] 3 ML PEN SC SCH ×4 (07:44→21:00)
[2017-03-31] MEDS: POLYETHYLENE GLYCOL 17 GM PACKET GTB SCH ×2 (08:44→21:00)
[2017-03-31] MEDS: DOCUSATE SODIUM 100 MG CAP PO SCH ×2 (08:50→21:00)
[2017-03-31] MEDS: EMPAGLIFLOZIN 10 MG TABLET PO SCH (08:51)
[2017-03-31] MEDS: metFORMIN 500 MG TAB PO SCH ×2 (08:51→18:05)
[2017-03-31] MEDS: AMLODIPINE 10 MG TAB PO SCH (08:51)
[2017-03-31] MEDS: FAMOTIDINE 20 MG TAB PO SCH ×2 (08:52→21:00)
--- NOTE | 2017-03-31 14:00 | PN ---
Date/Time of Note Date/Time of Note DATE: 03/31/17 TIME: 13:57 Assessment/Plan VTE Prophylaxis VTE Prophylaxis Intervention: SCD's Lines/Catheters [facility] Saline Lock Urinary Cath still in place: No Assessment/Plan Chief Complaint/Hosp Course Assessment/Plan: 71-year-old male with: 1. Multidrug resistant Pseudomonas urinary tract infection on treatment - continue current abx, f/u cx results. 2. Benign prostatic hypertrophy with LUTS - TURP planned for today, f/u rec's 3. Diabetes type 2; good control in house, A1C: 7.7 however - Metformin, ISS 4. High blood pressure with good control - current meds 5. Mild tachycardia, likely as the result of mild systemic inflammatory response syndrome secondary to #1 : improved - monitor Problems: Subjective 24 Hr Interval Summary Free Text/Dictation No acute events overnight, awaiting surgery for later today. Exam/Review of Systems Vital Signs Vitals Vital Signs Date Time Temp Pulse Resp B/P Pulse Ox O2 Delivery O2 Flow Rate FiO2 03/31/17 08:00 97.7 92 16 147/74 98 03/27/17 21:30 Room Air Intake and Output 03/30/17 03/30/17 03/31/17 15:00 23:00 07:00 Intake Total 1280 ml 390 ml Balance 1280 ml 390 ml Exam GENERAL: A and O X3, afebrile, no distress HEENT: Head is normocephalic. Pupils are equal round and reactive. Mucous membranes are moist. Posterior pharynx is clear of exudate. NECK: Supple without adenopathy or JVD. CHEST: Clear to auscultation. CARDIOVASCULAR: S1, S2. No murmurs. ABDOMEN: Soft, nontender, nondistended with normoactive bowel sounds. EXTREMITIES: No lower extremity edema. SKIN: Devoid of rash or jaundice. PSYCHIATRIC: calm. Results Result Diagram: 03/30/17 0505 03/30/17 0505 Results 24 hrs Laboratory Tests Test 03/30/17 17:35 03/30/17 20:36 03/31/17 07:40 03/31/17 11:33 Bedside Glucose 134 136 108 137 Medications Medications Current Medications Morphine Sulfate 2 mg 2 mg Q4H PRN IV pain; Start 03/27/17 at 19:00 Ceftazidime (Fortaz 1gm/50 ml (Pmx)) 50 ml @ 100 mls/hr Q8 IVPB Last administered on 03/31/17 05:27; Admin Dose 100 MLS/HR; Start 03/27/17 at 23:30 Ondansetron HCl (Zofran Inj) 4 mg Q6H PRN IV NAUSEA AND/OR VOMITING; Start 03/27 at 19:00 Famotidine (Pepcid) 20 mg BID PO Last administered on 03/30/17 20:37; Admin Dose 20 MG; Start 03/28/17 at 09:00 Empaglifozin (Jardiance) 10 mg DAILY@08 PO Last administered on 03/31/17 08:51 ; Admin Dose 10 MG; Start 03/28/17 at 08:00 Amlodipine Besylate (Norvasc) 10 mg DAILY PO Last administered on 03/31/17 08: 51; Admin Dose 10 MG; Start 03/28/17 at 09:00 Miscellaneous Information 1 ea NOTE XX ; Start 03/27/17 at 20:00 Glucose (Glutose) 15 gm Q15M PRN PO DECREASED GLUCOSE; Start 03/27/17 at 20:00 Glucose (Glutose) 22.5 gm Q15M PRN PO DECREASED GLUCOSE; Start 03/27/17 at 20:00 Dextrose (D50w Syringe) 25 ml Q15M PRN IV DECREASED GLUCOSE; Start 03/27/17 at 20:00 Dextrose (D50w Syringe) 50 ml Q15M PRN IV DECREASED GLUCOSE; Start 03/27/17 at 20:00 Glucagon (Glucagen) 1 mg Q15M PRN IM DECREASED GLUCOSE; Start 03/27/17 at 20:00 Glucose (Glutose) 15 gm Q15M PRN BUCCAL DECREASED GLUCOSE; Start 03/27/17 at 20: 00 Tamsulosin HCl (Flomax) 0.4 mg DAILY@21 PO Last administered on 03/30/17 20:37 ; Admin Dose 0.4 MG; Start 03/28/17 at 21:00 Docusate Sodium (Colace) 100 mg BID PO Last administered on 03/30/17 20:37; Admin Dose 100 MG; Start 03/29/17 at 21:00 Polyethylene Glycol (Miralax) 17 gm BID GTB Last administered on 5/6/17at 21:35 ; Admin Dose 17 GM; Start 03/29/17 at 21:00 Lubiprostone (Amitiza) 72 mcg DAILY PRN PO Constipation; Start 03/30/17 at 19:00 CARRIE ROBERTO March 31, 2017 14:00
--- NOTE | 2017-03-31 17:04 | HPN ---
Date/Time of Note Date/Time of Note DATE: 03/31/17 TIME: 17:03 Interval H&P Admission Note Pt. seen H&P reviewed: No system changes GABRIEL YMERS MD March 31, 2017 17:03
[2017-03-31] MEDS ORDERED: FENTAnyl 50 MCG/ML VIAL ONE (17:11)
[2017-03-31] MEDS ORDERED: LABETALOL HCL 20MG INJ ONE (17:18)
[2017-03-31] MEDS ORDERED: LIDOCAINE 2% (SDV) 5 ML INJ ONE (18:29)
[2017-03-31] MEDS ORDERED: NEOSTIGMINE 3 MG/3 ML SYRINGE ONE (18:30)
[2017-03-31] MEDS ORDERED: MEPERIDINE 25 MG INJ IV PRN (18:30)
[2017-03-31] MEDS ORDERED: ONDANSETRON 4 MG INJ IV PRN (18:30)
[2017-03-31] MEDS ORDERED: PROPOFOL 20 ML ONE (18:30)
[2017-03-31] MEDS ORDERED: ROCURONIUM 50 MG INJ ONE (18:30)
[2017-03-31] MEDS ORDERED: SUCCINYLCHOLINE CHLORIDE 100 MG/5 ML SYG IV ONE (18:30)
[2017-03-31] MEDS ORDERED: DIPHENHYDRAMINE 50 MG INJ IV PRN (18:30)
[2017-03-31] MEDS ORDERED: ALBUTEROL 0.083% (NEB) 2.5 MG/3 ML AMP HHN ONE (18:30)
[2017-03-31] MEDS ORDERED: METOCLOPRAMIDE 10 MG INJ IV PRN (18:30)
[2017-03-31] MEDS ORDERED: HYDROmorphONE (0.2 MG/ML) 10ML SYG IV PRN ×2 (18:30)
[2017-03-31] MEDS ORDERED: FENTAnyl 50 MCG/ML VIAL IV PRN (18:30)
[2017-03-31] MEDS ORDERED: GLYCOPYRROLATE 0.4 MG INJ ONE (18:30)
[2017-03-31] MEDS: HYDROmorphONE (0.2 MG/ML) 10ML SYG IV PRN ×5 (19:31→20:35)
[2017-03-31] MEDS: LABETALOL HCL 20MG INJ IV PRN ×2 (20:03→20:20)
[2017-03-31] MEDS ORDERED: CEFTAZIDIME 1GM/50 ML (PMX) 50 ML IVPB SCH (22:00)
--- NOTE | 2017-04-01 00:19 | OPR ---
DATE OF OPERATION: 03/31/2017 PREOPERATIVE DIAGNOSES: 1. Benign prostatic hypertrophy. 2. High postvoid residual. 3. Persistent urinary tract infection with pseudomonas that is resistant to oral antibiotic. POSTOPERATIVE DIAGNOSES: 1. Benign prostatic hypertrophy. 2. High postvoid residual. 3. Persistent urinary tract infection pseudomonas that is resistant to oral antibiotic. 4. Pending pathology report. OPERATION PERFORMED: Transurethral resection of the prostate. TECHNIQUE: The patient was brought to the operating room. General anesthesia was induced. Time-ou t was done. The patient was identified by his name, birthdate and the procedure. The patient was g iven 1 gram of ceftazidime IV extra at the start of the procedure. Then the patient was positioned in the lithotomy position. The genital area was prepped and draped in the usual sterile manner. Th e penile urethra was dilated with Orange dilators up to #30 South African. Then #28 [place] African resectoscope sheath was introduced under direct vision through the penile urethra all the way to the bladder. T he bladder appeared to be very trabeculated with cellular formation. The patient had a very large m edian lobe that was protruding into the bladder and like a mountain of the bladder neck obstructing the flow of the urine. Then the resection was started. I first identified the ureteral orifices an d stayed away from them, then resected the median lobe, then resected the left lateral lobe, then th e right lateral lobe and then the anterior lobe and at the end cleaned the apical tissue. All the b leeders were electrocoagulated. Good hemostasis was obtained. All the prostatic chips were evacuat ed. At the end of the procedure, the resectoscope was removed, and #24-[place] African 3-way Pardo catheter was inserted into the bladder. The balloon was inflated with about 50 mL of sterile water. Continu ous bladder irrigation was started in the operating room, and the patient was transferred to the rec overy room in stable and satisfactory condition. Dictated By: GABRIEL CORRAL/NAIMA Conf#: [id number] DID#: [id number]
[2017-04-01] MEDS: CEFTAZIDIME 1GM/50 ML (PMX) 50 ML IVPB SCH ×4 (00:35→21:09)
[2017-04-01 06:33] LABS: ADD SCAN DIFF NO
[2017-04-01 06:41] LABS: BASOPHILS % 0.1 % (0.0-2.0); HEMATOCRIT 45.2 % (42.0-52.0); HEMOGLOBIN 15.3 g/dl (14.0-18.0); LYMPHOCYTES # 1.4 10^3/ul (0.8-2.9); MEAN CORPUSCULAR HEMOGLOBIN 28.5 pg (29.0-33.0); MEAN CORPUSCULAR HGB CONC 33.8 g/dl (32.0-37.0); MEAN CORPUSCULAR VOLUME 84.2 fl (82.0-101.0); MEAN PLATELET VOLUME 10.2 fl (7.4-10.4); MONOCYTE # 0.6 10^3/ul (0.3-0.9); MONOCYTES % 3.6 % (0.0-11.0); NEUTROPHIL # 15.3 10^3/ul (1.6-7.5); NEUTROPHILS % 87.7 % (39.0-77.0); PLATELET COUNT 330 10^3/UL (140-415); RED BLOOD COUNT 5.37 10^6/ul (4.70-6.10); RED CELL DISTRIBUTION WIDTH 14.5 % (11.5-14.5); WHITE BLOOD COUNT 17.4 10^3/ul (4.8-10.8)
[2017-04-01 07:37] VITALS: BP 124/68; RESP 18
[2017-04-01] MEDS: INSULIN ASPART [NOVOLOG] 3 ML PEN SC SCH ×4 (08:00→21:00)
[2017-04-01] MEDS: EMPAGLIFLOZIN 10 MG TABLET PO SCH (08:21)
[2017-04-01] MEDS: metFORMIN 500 MG TAB PO SCH ×2 (08:21→17:36)
[2017-04-01] MEDS: FAMOTIDINE 20 MG TAB PO SCH ×2 (08:37→21:12)
[2017-04-01] MEDS: AMLODIPINE 10 MG TAB PO SCH (08:38)
[2017-04-01] MEDS: POLYETHYLENE GLYCOL 17 GM PACKET GTB SCH ×3 (08:39→21:10)
[2017-04-01] MEDS: DOCUSATE SODIUM 100 MG CAP PO SCH ×2 (08:39→21:10)
--- NOTE | 2017-04-01 14:27 | PN ---
Date/Time of Note Date/Time of Note DATE: 04/01/17 TIME: 14:26 Assessment/Plan VTE Prophylaxis VTE Prophylaxis Intervention: SCD's Lines/Catheters IV C[facility]ter Type (from [facility] Saline Lock Urinary Cath still in place: Yes Reason Cath still needed: urinary retention Assessment/Plan Chief Complaint/Hosp Course Assessment/Plan: 71-year-old male with: 1. Multidrug resistant Pseudomonas urinary tract infection on treatment - continue current abx, f/u cx results. 2. Benign prostatic hypertrophy - s/p TURP POD # 1. - continue CBI , f/u rec's 3. Diabetes type 2; good control in house, A1C: 7.7 however - Metformin, ISS 4. High blood pressure with good control - current meds 5. Mild tachycardia, likely as the result of mild systemic inflammatory response syndrome secondary to #1 : improved - monitor Problems: Subjective 24 Hr Interval Summary Free Text/Dictation Pt had TURP yesterday, on CBI presently. Exam/Review of Systems Vital Signs Vitals Vital Signs Date Time Temp Pulse Resp B/P Pulse Ox O2 Delivery O2 Flow Rate FiO2 04/01/17 07:37 98.1 99 18 124/68 98 03/31/17 20:23 Room Air Nasal Cannula 03/31/17 19:40 21 Intake and Output 03/31/17 03/31/17 04/01/17 15:00 23:00 07:00 Intake Total 1320 ml 28193 ml Output Total 2050 ml 57746 ml Balance -730 ml 2500 ml Exam GENERAL: A and O X3, afebrile, no distress HEENT: Head is normocephalic. Pupils are equal round and reactive. Mucous membranes are moist. Posterior pharynx is clear of exudate. NECK: Supple without adenopathy or JVD. CHEST: Clear to auscultation. CARDIOVASCULAR: S1, S2. No murmurs. ABDOMEN: Soft, nontender, nondistended with normoactive bowel sounds. EXTREMITIES: No lower extremity edema. SKIN: Devoid of rash or jaundice. PSYCHIATRIC: calm. Results Result Diagram: 04/01/17 0611 03/30/17 0505 Results 24 hrs Laboratory Tests Test 03/31/17 16:05 03/31/17 16:40 03/31/17 21:22 04/01/17 06:11 Bedside Glucose 87 86 187 White Blood Count 17.4 #H Red Blood Count 5.37 Hemoglobin 15.3 Hematocrit 45.2 Mean Corpuscular Volume 84.2 Mean Corpuscular Hemoglobin 28.5 L Mean Corpuscular Hemoglobin Concent 33.8 Red Cell Distribution Width 14.5 Platelet Count 330 Mean Platelet Volume 10.2 Neutrophils % 87.7 H Lymphocytes % 8.0 L Monocytes % 3.6 Eosinophils % 0.0 Basophils % 0.1 Nucleated Red Blood Cells % 0.0 Neutrophils # 15.3 H Lymphocytes # 1.4 Monocytes # 0.6 Eosinophils # 0.0 Basophils # 0.0 Nucleated Red Blood Cells # 0.0 Test 04/01/17 07:36 04/01/17 12:01 Bedside Glucose 101 134 Medications Medications Current Medications Morphine Sulfate (morphine) 2 mg Q4H PRN IV pain; Start 03/27/17 at 19:00 Ondansetron HCl (Zofran Inj) 4 mg Q6H PRN IV NAUSEA AND/OR VOMITING Last administered on 03/31/17 21:16; Admin Dose 4 MG; Start 03/27/17 at 19:00 Famotidine (Pepcid) 20 mg BID PO Last administered on 04/01/17 08:37; Admin Dose 20 MG; Start 03/28/17 at 09:00 Empaglifozin (Jardiance) 10 mg DAILY@08 PO Last administered on 04/01/17 08:21 ; Admin Dose 10 MG; Start 03/28/17 at 08:00 Amlodipine Besylate (Norvasc) 10 mg DAILY PO Last administered on 04/01/17 08: 38; Admin Dose 10 MG; Start 03/28/17 at 09:00 Miscellaneous Information 1 ea NOTE XX ; Start 03/27/17 at 20:00 Glucose (Glutose) 15 gm Q15M PRN PO DECREASED GLUCOSE; Start 03/27/17 at 20:00 Glucose (Glutose) 22.5 gm Q15M PRN PO DECREASED GLUCOSE; Start 03/27/17 at 20:00 Dextrose (D50w Syringe) 25 ml Q15M PRN IV DECREASED GLUCOSE; Start 03/27/17 at 20:00 Dextrose (D50w Syringe) 50 ml Q15M PRN IV DECREASED GLUCOSE; Start 03/27/17 at 20:00 Glucagon (Glucagen) 1 mg Q15M PRN IM DECREASED GLUCOSE; Start 03/27/17 at 20:00 Glucose (Glutose) 15 gm Q15M PRN BUCCAL DECREASED GLUCOSE; Start 03/27/17 at 20: 00 Docusate Sodium (Colace) 100 mg BID PO Last administered on 04/01/17 08:39; Admin Dose 100 MG; Start 03/29/17 at 21:00 Polyethylene Glycol (Miralax) 17 gm BID GTB Last administered on 03/29/17 21:35 ; Admin Dose 17 GM; Start 03/29/17 at 21:00 Lubiprostone 72 mcg 72 mcg DAILY PRN PO Constipation; Start 03/30/17 at 19:00 Ceftazidime (Fortaz 1gm/50 ml (Pmx)) 50 ml @ 100 mls/hr Q8 IVPB Last administered on 04/01/17 13:44; Admin Dose 100 MLS/HR; Start 03/31/17 at 17:48 Diagnostic Test (Pha) (Accu-Chek) 1 ea 02 XX ; Start 04/02/17 at 02:00 Magnesium Hydroxide (Milk Of Mag) 30 ml DAILY PRN PO CONSTIPATION; Start at 14:30; Status CARRIE BLACK April 01, 2017 14:27
[2017-04-01] MEDS ORDERED: MAGNESIUM HYDROXIDE 30ML CUP PO PRN (14:30)
[2017-04-01 19:40] VITALS: BP 134/70; RESP 20
[2017-04-01 19:54] LABS: POTASSIUM 4.4 mmol/L (3.5-5.1)
[2017-04-01 19:57] LABS: CALCIUM 9.2 mg/dl (8.4-10.2); CREATININE 0.85 mg/dl (0.61-1.24)
[2017-04-01] MEDS: ZOLPIDEM 5 MG TAB PO PRN (22:10)
--- NOTE | 2017-04-02 02:10 | PN ---
DATE: 04/01/2017 SUBJECTIVE: The patient is comfortable. He is status post transurethral resection of the prostate. OBJECTIVE: VITAL SIGNS: His temperature is 98.1, respiration is 18, pulse is 99, blood pressure 124/68. The Pardo catheter is draining clear urine with continuous bladder irrigation. LABORATORY DATA: CBC shows a white count of 17.4, hemoglobin 15.3, hematocrit 45.2. The BUN is 17, creatinine 0.85. Electrolytes: Sodium 136, potassium 4.4, chloride 97, CO2 25. The pathology rep ort is still pending. IMPRESSION: Status post TURP, doing good progress, he has some leukocytosis. The patient is on cef tazidime IV, so we shall continue that and repeat his CBC in the morning and stop the bladder irriga tion in the morning and then see if the urine remains clear, then we could discontinue the Pardo cat heter and continue his intravenous antibiotic. Dictated By: GABRIEL MYERS MD BB/NTS Conf#: [id number] DID#: [id number] CC: JACINDA TSANG MD; GABRIEL MYERS MD;*EndCC*
[2017-04-02] MEDS: ACCU-CHEK XX SCH (02:53)
[2017-04-02] MEDS: CEFTAZIDIME 1GM/50 ML (PMX) 50 ML IVPB SCH ×3 (04:34→21:33)
[2017-04-02] MEDS: morphine 2 MG INJ IV PRN ×2 (06:03→16:50)
[2017-04-02 06:23] LABS: ADD SCAN DIFF NO
[2017-04-02 06:31] LABS: BASOPHILS % 0.2 % (0.0-2.0); EOSINOPHILS # 0.1 10^3/ul (0.0-0.5); HEMOGLOBIN 14.3 g/dl (14.0-18.0); LYMPHOCYTES % 23.6 % (15.0-51.0); MEAN CORPUSCULAR HEMOGLOBIN 27.1 pg (29.0-33.0); MEAN CORPUSCULAR HGB CONC 32.5 g/dl (32.0-37.0); MEAN CORPUSCULAR VOLUME 83.5 fl (82.0-101.0); MEAN PLATELET VOLUME 10.2 fl (7.4-10.4); MONOCYTE # 0.8 10^3/ul (0.3-0.9); MONOCYTES % 6.1 % (0.0-11.0); NEUTROPHIL # 8.8 10^3/ul (1.6-7.5); NEUTROPHILS % 68.6 % (39.0-77.0); PLATELET COUNT 303 10^3/UL (140-415); RED BLOOD COUNT 5.27 10^6/ul (4.70-6.10); WHITE BLOOD COUNT 12.8 10^3/ul (4.8-10.8)
[2017-04-02 07:43] VITALS: BP 132/78; RESP 19
[2017-04-02] MEDS: INSULIN ASPART [NOVOLOG] 3 ML PEN SC SCH ×4 (07:46→21:00)
[2017-04-02] MEDS: metFORMIN 500 MG TAB PO SCH ×2 (08:03→17:24)
[2017-04-02] MEDS: EMPAGLIFLOZIN 10 MG TABLET PO SCH (08:03)
[2017-04-02] MEDS: POLYETHYLENE GLYCOL 17 GM PACKET GTB SCH ×3 (08:03→21:33)
[2017-04-02] MEDS: FAMOTIDINE 20 MG TAB PO SCH ×2 (08:03→21:33)
[2017-04-02] MEDS: DOCUSATE SODIUM 100 MG CAP PO SCH ×2 (08:04→21:33)
[2017-04-02] MEDS: AMLODIPINE 10 MG TAB PO SCH (08:04)
--- NOTE | 2017-04-02 14:09 | PN ---
Date/Time of Note Date/Time of Note DATE: 04/02/17 TIME: 14:06 Assessment/Plan VTE Prophylaxis VTE Prophylaxis Intervention: SCD's Lines/Catheters IV Catheter Type (from Nrs): Saline Lock Urinary Cath still in place: Yes Reason Cath still needed: urinary retention Assessment/Plan Chief Complaint/Hosp Course Assessment/Plan: 71-year-old male with: 1. Multidrug resistant Pseudomonas urinary tract infection on treatment - continue current abx, f/u cx results. 2. Benign prostatic hypertrophy - s/p TURP POD # 2, now off CBI - monitor UO, f/u rec's 3. Diabetes type 2; good control in house, A1C: 7.7 however - Metformin, ISS 4. High blood pressure with good control - current meds 5. Mild tachycardia, likely as the result of mild systemic inflammatory response syndrome secondary to #1 : improved - monitor Problems: Subjective 24 Hr Interval Summary Free Text/Dictation Pt off CBI since AM. No acute events overnight. Exam/Review of Systems Vital Signs Vitals Vital Signs Date Time Temp Pulse Resp B/P Pulse Ox O2 Delivery O2 Flow Rate FiO2 04/02/17 07:43 98.0 89 19 132/78 97 03/31/17 20:23 Room Air Nasal Cannula 03/31/17 19:40 21 Intake and Output 04/01/17 04/01/17 04/02/17 15:00 23:00 07:00 Intake Total 50 ml 17112 ml 600 ml Output Total 2200 ml 2500 ml Balance 50 ml 8650 ml -1900 ml Exam GENERAL: A and O X3, afebrile, no distress HEENT: Head is normocephalic. Pupils are equal round and reactive. Mucous membranes are moist. NECK: Supple without adenopathy or JVD. CHEST: Clear to auscultation. CARDIOVASCULAR: S1, S2. No murmurs. ABDOMEN: Soft, nontender, nondistended with normoactive bowel sounds. EXTREMITIES: No lower extremity edema. SKIN: Devoid of rash or jaundice. PSYCHIATRIC: calm. Results Result Diagram: 04/02/17 0452 04/01/17 1925 Results 24 hrs Laboratory Tests Test 04/01/17 17:14 04/01/17 19:25 04/02/17 04:52 04/02/17 07:46 Bedside Glucose 121 110 Sodium Level 136 Potassium Level 4.4 Chloride Level 97 Carbon Dioxide Level 25 Anion Gap 18 H Blood Urea Nitrogen 17 Creatinine 0.85 Glucose Level 164 Calcium Level 9.2 White Blood Count 12.8 #H Red Blood Count 5.27 Hemoglobin 14.3 Hematocrit 44.0 Mean Corpuscular Volume 83.5 Mean Corpuscular Hemoglobin 27.1 L Mean Corpuscular Hemoglobin Concent 32.5 Red Cell Distribution Width 15.0 H Platelet Count 303 Mean Platelet Volume 10.2 Neutrophils % 68.6 Lymphocytes % 23.6 Monocytes % 6.1 Eosinophils % 1.0 Basophils % 0.2 Nucleated Red Blood Cells % 0.0 Neutrophils # 8.8 H Lymphocytes # 3.0 H Monocytes # 0.8 Eosinophils # 0.1 Basophils # 0.0 Nucleated Red Blood Cells # 0.0 Test 04/02/17 11:48 Bedside Glucose 140 Medications Medications Current Medications Morphine Sulfate (morphine) 2 mg Q4H PRN IV pain Last administered on 06:03; Admin Dose 2 MG; Start 03/27/17 at 19:00 Ondansetron HCl (Zofran Inj) 4 mg Q6H PRN IV NAUSEA AND/OR VOMITING Last administered on 03/31/17 21:16; Admin Dose 4 MG; Start 03/27/17 at 19:00 Famotidine (Pepcid) 20 mg BID PO Last administered on 04/02/17 08:03; Admin Dose 20 MG; Start 03/28/17 at 09:00 Empaglifozin (Jardiance) 10 mg DAILY@08 PO Last administered on 04/02/17 08:03 ; Admin Dose 10 MG; Start 03/28/17 at 08:00 Amlodipine Besylate (Norvasc) 10 mg DAILY PO Last administered on 04/02/17 08: 04; Admin Dose 10 MG; Start 03/28/17 at 09:00 Miscellaneous Information 1 ea NOTE XX ; Start 03/27/17 at 20:00 Glucose (Glutose) 15 gm Q15M PRN PO DECREASED GLUCOSE; Start 03/27/17 at 20:00 Glucose (Glutose) 22.5 gm Q15M PRN PO DECREASED GLUCOSE; Start 03/27/17 at 20:00 Dextrose (D50w Syringe) 25 ml Q15M PRN IV DECREASED GLUCOSE; Start 03/27/17 at 20:00 Dextrose (D50w Syringe) 50 ml Q15M PRN IV DECREASED GLUCOSE; Start 03/27/17 at 20:00 Glucagon (Glucagen) 1 mg Q15M PRN IM DECREASED GLUCOSE; Start 03/27/17 at 20:00 Glucose (Glutose) 15 gm Q15M PRN BUCCAL DECREASED GLUCOSE; Start 03/27/17 at 20: 00 Docusate Sodium (Colace) 100 mg BID PO Last administered on 04/02/17 08:04; Admin Dose 100 MG; Start 03/29/17 at 21:00 Polyethylene Glycol (Miralax) 17 gm BID GTB Last administered on 04/01/17 21:10 ; Admin Dose 17 GM; Start 03/29/17 at 21:00 Lubiprostone 72 mcg 72 mcg DAILY PRN PO Constipation; Start 03/30/17 at 19:00 Ceftazidime (Fortaz 1gm/50 ml (Pmx)) 50 ml @ 100 mls/hr Q8 IVPB Last administered on 04/02/17 13:20; Admin Dose 100 MLS/HR; Start 03/31/17 at 17:48 Diagnostic Test (Pha) (Accu-Chek) 1 ea 02 XX Last administered on 04/02/17 02: 53; Admin Dose 1 EA; Start 04/02/17 at 02:00 Magnesium Hydroxide (Milk Of Mag) 30 ml DAILY PRN PO CONSTIPATION; Start at 14:30 Zolpidem Tartrate (Ambien) 10 mg HS PRN PO INSOMNIA Last administered on 22:10; Admin Dose 10 MG; Start 04/01/17 at 21:30 CARRIE ROBERTO April 02, 2017 14:09
--- NOTE | 2017-04-02 20:46 | PN ---
DATE: 04/02/2017 SUBJECTIVE: The patient is status post transurethral resection of the prostate and he is feeling co mfortable and anxious to go home. He has had a urinary tract infection with pseudomonas that is res istant to the oral antibiotic and he has been on ceftazidime. OBJECTIVE: VITAL SIGNS: His temperature is 98.0, pulse is 89, respiration 19, blood pressure 132/78. ABDOMEN: Soft. The continuous bladder irrigation has been stopped earlier this morning. The patie nt is drinking plenty of water and the return from the Pardo catheter is clear. LABORATORY DATA: His CBC today shows a white count of 12.8, hemoglobin 14.3, hematocrit 44.0. The BUN is 17, creatinine 0.85. The blood cultures have been negative. The pathology report came back as 28 grams of benign prostatic hypertrophy and chronic prostatitis, focally granulomatous. No evid ence of malignancy. IMPRESSION: 1. The patient is status post transurethral resection of the prostate for increased postvoid residu al. 2. Urinary tract infection. 3. The patient is doing well and the urine is clear. He is still on the intravenous ceftazidime. PLAN: To keep the Pardo catheter tonight and tomorrow, if the urine is clear, we could discontinue the Pardo catheter. Then the patient could go home, but he should continue the ceftazidime for anot her 4 days at home to make sure that the infection with the pseudomonas is all clear. Dictated By: GABRIEL MYERS MD BB/NAIMA Conf#: [id number] DID#: [id number] CC: JACINDA TSANG MD;*EndCC*
[2017-04-02 21:31] VITALS: BP 145/83; RESP 20
[2017-04-03] MEDS: ACCU-CHEK XX SCH (02:00)
[2017-04-03] MEDS: CEFTAZIDIME 1GM/50 ML (PMX) 50 ML IVPB SCH ×3 (05:21→21:40)
[2017-04-03 06:31] LABS: ADD SCAN DIFF NO
[2017-04-03 06:54] LABS: BASOPHILS % 0.1 % (0.0-2.0); EOSINOPHILS # 0.2 10^3/ul (0.0-0.5); EOSINOPHILS % 1.6 % (0.0-7.0); HEMATOCRIT 44.9 % (42.0-52.0); HEMOGLOBIN 14.7 g/dl (14.0-18.0); LYMPHOCYTES % 27.7 % (15.0-51.0); MEAN CORPUSCULAR HEMOGLOBIN 27.4 pg (29.0-33.0); MEAN CORPUSCULAR HGB CONC 32.7 g/dl (32.0-37.0); MEAN CORPUSCULAR VOLUME 83.6 fl (82.0-101.0); MEAN PLATELET VOLUME 10.3 fl (7.4-10.4); MONOCYTE # 0.8 10^3/ul (0.3-0.9); MONOCYTES % 7.7 % (0.0-11.0); NEUTROPHIL # 6.9 10^3/ul (1.6-7.5); NEUTROPHILS % 62.5 % (39.0-77.0); PLATELET COUNT 314 10^3/UL (140-415); RED BLOOD COUNT 5.37 10^6/ul (4.70-6.10); RED CELL DISTRIBUTION WIDTH 14.7 % (11.5-14.5)
[2017-04-03 07:34] VITALS: BP 144/80; RESP 20
[2017-04-03] MEDS: INSULIN ASPART [NOVOLOG] 3 ML PEN SC SCH ×4 (07:44→20:27)
[2017-04-03] MEDS: metFORMIN 500 MG TAB PO SCH ×2 (08:00→17:26)
[2017-04-03] MEDS: AMLODIPINE 10 MG TAB PO SCH (08:00)
[2017-04-03] MEDS: EMPAGLIFLOZIN 10 MG TABLET PO SCH (08:00)
[2017-04-03] MEDS: DOCUSATE SODIUM 100 MG CAP PO SCH ×2 (08:00→20:20)
[2017-04-03] MEDS: FAMOTIDINE 20 MG TAB PO SCH ×2 (08:00→20:20)
[2017-04-03] MEDS: POLYETHYLENE GLYCOL 17 GM PACKET GTB SCH ×2 (08:01→20:23)
--- NOTE | 2017-04-03 08:42 | RADRPT ---
Vent Rate: 96 bpm RR Interval: 0 msec MO Interval: 194 msec QRS Duration: 142 msec QT Interval: 374 msec QTC Interval: 472 msec P-R-T [place]: 49 - 54 - 34 degrees Sinus rhythm with preature ventricular complex Right bundle branch block Abnormal ECG Electronically Signed By: Sundar Lugo [id number]
--- NOTE | 2017-04-03 15:43 | PN ---
Date/Time of Note Date/Time of Note DATE: 04/03/17 TIME: 15:40 Assessment/Plan VTE Prophylaxis VTE Prophylaxis Intervention: SCD's Lines/Catheters IV Catheter Type (from Nrs): Saline Lock Urinary Cath still in place: Yes Reason Cath still needed: urinary retention Assessment/Plan Chief Complaint/Hosp Course Assessment/Plan: 71-year-old male with: 1. Multidrug resistant Pseudomonas urinary tract infection on treatment - continue current abx, f/u cx results. Will need Ceftazadime IV abx x 4 more days - CM trying to set this up for home use. 2. Benign prostatic hypertrophy - s/p TURP POD # 3, now off CBI - monitor UO, f/u rec's 3. Diabetes type 2; good control in house, A1C: 7.7 however - Metformin, ISS 4. High blood pressure with good control - current meds 5. Mild tachycardia, likely as the result of mild systemic inflammatory response syndrome secondary to #1 : improved - monitor Problems: Subjective 24 Hr Interval Summary Free Text/Dictation Pt had no acute events overnight. Exam/Review of Systems Vital Signs Vitals Vital Signs Date Time Temp Pulse Resp B/P Pulse Ox O2 Delivery O2 Flow Rate FiO2 04/03/17 07:34 98.1 94 20 144/80 95 03/31/17 20:23 Room Air Nasal Cannula 03/31/17 19:40 21 Intake and Output 04/02/17 04/02/17 04/03/17 15:00 23:00 07:00 Intake Total 1170 ml 705 ml Output Total 1500 ml 1800 ml Balance -330 ml -1095 ml Exam GENERAL: A and O X3, afebrile, no distress HEENT: Head is normocephalic. Pupils are equal round and reactive. Mucous membranes are moist. NECK: Supple without adenopathy or JVD. CHEST: Clear to auscultation. CARDIOVASCULAR: S1, S2. No murmurs. ABDOMEN: Soft, nontender, nondistended with normoactive bowel sounds. EXTREMITIES: No lower extremity edema. SKIN: Devoid of rash or jaundice. PSYCHIATRIC: calm. Results Result Diagram: 04/03/17 0520 04/01/171924 Results 24 hrs Laboratory Tests Test 04/02/17 17:22 04/02/17 21:07 04/03/17 05:20 04/03/17 07:42 Bedside Glucose 111 170 107 White Blood Count 11.0 H Red Blood Count 5.37 Hemoglobin 14.7 Hematocrit 44.9 Mean Corpuscular Volume 83.6 Mean Corpuscular Hemoglobin 27.4 L Mean Corpuscular Hemoglobin Concent 32.7 Red Cell Distribution Width 14.7 H Platelet Count 314 Mean Platelet Volume 10.3 Neutrophils % 62.5 Lymphocytes % 27.7 Monocytes % 7.7 Eosinophils % 1.6 Basophils % 0.1 Nucleated Red Blood Cells % 0.0 Neutrophils # 6.9 Lymphocytes # 3.0 H Monocytes # 0.8 Eosinophils # 0.2 Basophils # 0.0 Nucleated Red Blood Cells # 0.0 Test 04/03/17 10:07 04/03/17 12:16 Bedside Glucose 158 139 Medications Medications Current Medications Morphine Sulfate (morphine) 2 mg Q4H PRN IV pain Last administered on 16:50; Admin Dose 2 MG; Start 03/27/17 at 19:00 Ondansetron HCl (Zofran Inj) 4 mg Q6H PRN IV NAUSEA AND/OR VOMITING Last administered on 03/31/17 21:16; Admin Dose 4 MG; Start 03/27/17 at 19:00 Famotidine (Pepcid) 20 mg BID PO Last administered on 04/03/17 08:00; Admin Dose 20 MG; Start 03/28/17 at 09:00 Empaglifozin (Jardiance) 10 mg DAILY@08 PO Last administered on 04/03/17 08:00 ; Admin Dose 10 MG; Start 03/28/17 at 08:00 Amlodipine Besylate (Norvasc) 10 mg DAILY PO Last administered on 04/03/17 08: 00; Admin Dose 10 MG; Start 03/28/17 at 09:00 Miscellaneous Information 1 ea NOTE XX ; Start 03/27/17 at 20:00 Glucose (Glutose) 15 gm Q15M PRN PO DECREASED GLUCOSE; Start 03/27/17 at 20:00 Glucose (Glutose) 22.5 gm Q15M PRN PO DECREASED GLUCOSE; Start 03/27/17 at 20:00 Dextrose (D50w Syringe) 25 ml Q15M PRN IV DECREASED GLUCOSE; Start 03/27/17 at 20:00 Dextrose (D50w Syringe) 50 ml Q15M PRN IV DECREASED GLUCOSE; Start 03/27/17 at 20:00 Glucagon (Glucagen) 1 mg Q15M PRN IM DECREASED GLUCOSE; Start 03/27/17 at 20:00 Glucose (Glutose) 15 gm Q15M PRN BUCCAL DECREASED GLUCOSE; Start 03/27/17 at 20: 00 Docusate Sodium (Colace) 100 mg BID PO Last administered on 04/03/17 08:00; Admin Dose 100 MG; Start 03/29/17 at 21:00 Polyethylene Glycol (Miralax) 17 gm BID GTB Last administered on 04/02/17 21: 33; Admin Dose 17 GM; Start 03/29/17 at 21:00 Lubiprostone 72 mcg 72 mcg DAILY PRN PO Constipation Last administered on 08:01; Admin Dose 72 MCG; Start 03/30/17 at 19:00 Ceftazidime (Fortaz 1gm/50 ml (Pmx)) 50 ml @ 100 mls/hr Q8 IVPB Last administered on 04/03/17 13:12; Admin Dose 100 MLS/HR; Start 03/31/17 at 17:48 Diagnostic Test (Pha) (Accu-Chek) 1 ea 02 XX Last administered on 04/02/17 02: 53; Admin Dose 1 EA; Start 04/02/17 at 02:00 Magnesium Hydroxide (Milk Of Mag) 30 ml DAILY PRN PO CONSTIPATION; Start at 14:30 Zolpidem Tartrate (Ambien) 10 mg HS PRN PO INSOMNIA Last administered on 22:10; Admin Dose 10 MG; Start 04/01/17 at 21:30 CARRIE ROBERTO April 03, 2017 15:43
[2017-04-03 20:00] VITALS: BP 138/78; PULSE 97; RESP 18
[2017-04-03] MEDS: ZOLPIDEM 5 MG TAB PO PRN (22:31)
--- NOTE | 2017-04-03 23:41 | PN ---
DATE: 04/03/2017 SUBJECTIVE: The patient denies having any pain. He is comfortable. He is anxious to go home, but he does have urinary tract infection that is resistant to oral antibiotic and requires IV ceftazidim e. OBJECTIVE: VITAL SIGNS: His temperature is 98.1, pulse is 94, respiration 20, blood pressure 144/80. ABDOMEN: Soft. The Pardo catheter that he has is draining clear urine. The irrigation has been stopped yesterday a nd the urine remained clear. LABORATORY DATA: His CBC shows a white count of 11.0. Hemoglobin 14.7, hematocrit 44.9. The BUN i s 17, creatinine 0.85. Electrolytes are normal. Pathology report is benign prostatic hypertrophy, chronic prostatitis and focally he has granulomatous prostatitis. IMPRESSION: Urinary tract infection and benign prostatic hypertrophy. The patient is status post t ransurethral resection of the prostate. PLAN: To discontinue the Pardo catheter tomorrow at 6:00 a.m. and continue the intravenous antibiot ics. Should there be arrangement made that he could get a continued antibiotic at home then he coul d go home and continue the IV antibiotic at home. Dictated By: GABRIEL MYERS MD BB/NAIMA Conf#: [id number] DID#: [id number] CC: JACINDA TSANG MD;*EndCC*
[2017-04-04] MEDS: ACCU-CHEK XX SCH (02:00)
[2017-04-04 05:10] LABS: ADD SCAN DIFF NO
[2017-04-04 05:17] LABS: BASOPHILS % 0.3 % (0.0-2.0); EOSINOPHILS # 0.2 10^3/ul (0.0-0.5); EOSINOPHILS % 1.9 % (0.0-7.0); HEMATOCRIT 44.6 % (42.0-52.0); LYMPHOCYTES # 2.6 10^3/ul (0.8-2.9); MEAN CORPUSCULAR HEMOGLOBIN 27.6 pg (29.0-33.0); MEAN CORPUSCULAR HGB CONC 33.6 g/dl (32.0-37.0); MEAN CORPUSCULAR VOLUME 82.1 fl (82.0-101.0); MEAN PLATELET VOLUME 9.9 fl (7.4-10.4); MONOCYTE # 0.7 10^3/ul (0.3-0.9); MONOCYTES % 7.1 % (0.0-11.0); NEUTROPHIL # 6.5 10^3/ul (1.6-7.5); NEUTROPHILS % 64.3 % (39.0-77.0); PLATELET COUNT 325 10^3/UL (140-415); RED BLOOD COUNT 5.43 10^6/ul (4.70-6.10); RED CELL DISTRIBUTION WIDTH 14.4 % (11.5-14.5); WHITE BLOOD COUNT 10.1 10^3/ul (4.8-10.8)
[2017-04-04] MEDS: CEFTAZIDIME 1GM/50 ML (PMX) 50 ML IVPB SCH ×3 (05:32→21:02)
[2017-04-04] MEDS: INSULIN ASPART [NOVOLOG] 3 ML PEN SC SCH ×4 (07:41→21:00)
[2017-04-04 08:20] VITALS: BP 149/84; RESP 18
[2017-04-04] MEDS: POLYETHYLENE GLYCOL 17 GM PACKET GTB SCH ×2 (08:46→21:02)
[2017-04-04] MEDS: AMLODIPINE 10 MG TAB PO SCH (08:46)
[2017-04-04] MEDS: EMPAGLIFLOZIN 10 MG TABLET PO SCH (08:46)
[2017-04-04] MEDS: DOCUSATE SODIUM 100 MG CAP PO SCH ×2 (08:46→21:02)
[2017-04-04] MEDS: metFORMIN 500 MG TAB PO SCH ×2 (08:46→17:55)
[2017-04-04] MEDS: FAMOTIDINE 20 MG TAB PO SCH ×3 (08:47→21:02)
--- NOTE | 2017-04-04 13:58 | PDOCDIS ---
Discharge Instructions CONDITION Patient Condition: Good HOME CARE INSTRUCTIONS: Special Diet: carb control ACTIVITY: Activity Restrictions: Slowly Increase Activity Rest between Activity Avoid heavy lifting No Sexual Activity Do not Drive Bathing Restrictions: Shower FOLLOW UP/APPOINTMENTS Appointments in 10-14 days call for appointment [phone] REFERRALS Other Referrals home health agency that was visiting him before GABRIEL MYERS MD April 04, 2017 13:58
[2017-04-04] MEDS ORDERED: POLY17PO6 GTB (15:02)
--- NOTE | 2017-04-04 15:18 | DS ---
DATE OF ADMISSION: 03/27/2017 DATE OF DISCHARGE: 04/04/2017 A 71-year-old male originally admitted on 03/28/2017, being discharged home on 04/04/2017. HOSPITAL COURSE: The patient was actually sent in by the urologist for admission, as he has been hav ing urinary symptoms as an outpatient. He was found with a multidrug resistant Pseudomonas urinary tract infection and BPH. He underwent a surgical procedure, specifically he had a transurethral res ection of the prostate, performed. Afterwards the patient was placed on continuous bladder irrigati on. His hematuria resolved. He was treated with antibiotics for his UTI. He was able to ambulate and tolerate a p.o. diet and after getting clearance from the urology team today he will be discharg ed home today in improved condition. DISCHARGE MEDICATIONS: He will go home with: 1. Ceftazidime 1 gram IV q.8h. for 4 more days. 2. He will also get MiraLax 17 grams b.i.d. 3. Amlodipine 10 mg daily. 4. Jardiance 10 mg daily. 5. Enalapril 5 mg daily. 6. Glimepiride 2 mg b.i.d. 7. Ibuprofen 400 mg t.i.d. p.r.n. 8. Metformin 1000 mg b.i.d. 9. Toprol-XL 100 mg daily. 10. Flomax 0.4 mg daily. FOLLOWUP: He will followup with his primary care doctor in the next 1 to 2 weeks. FINAL DIAGNOSES: 1. Urinary retention secondary to benign prostatic hypertrophy, status post TURP. 2. Multi-drug resistant Pseudomonas urinary tract infection, now improving on antibiotics. 3. History of benign prostatic hypertrophy. 4. Essential hypertension. 5. Type 2 diabetes. 6. History of bilateral shoulder surgery. Please note, time spent discharging this patient was 40 minutes. Dictated By: CARRIE HERMAN Conf#: [id number] DID#: [id number]
--- NOTE | 2017-04-04 15:43 | PN ---
DATE: 04/04/2017 SUBJECTIVE: The patient is status post transurethral resection of the prostate and treatment of uri nary tract infection. The patient had an indwelling Pardo catheter that was removed this morning. Th e patient states that he is voiding better and the stream is good and he does have, however, mild dy suria at the tip of the penis. OBJECTIVE VITAL SIGNS: His temperature is 97.8, blood pressure 149/84, pulse is 109, respirations 18. ABDOMEN: Soft. There is no abdominal tenderness. The urine that he is voiding is blood-tinged, wi th blood. LABORATORY: CBC shows a white count of 10.1, hemoglobin 15.0, hematocrit 44.6. The last BUN was 17 , creatinine 0.85. IMPRESSION: Benign prostatic hypertrophy status post transurethral resection of the prostate and ur inary tract infection due to pseudomonas that was present on admission and that is why we admitted h im to start with. PLAN: The patient may be discharged today and arrangements are made by the case liner to have him continue the ceftazidime for another 4 days intravenously at home. Dictated By: GABRIEL CORRAL/NAIMA Conf#: [id number] DID#: [id number]
[2017-04-04 20:00] VITALS: BP 141/75; RESP 18
== END 2017-04-04 21:53 | disposition home health service (06) | DRG 713 ==
LOC: E/R 13:59 → PP2 18:15
PROVIDERS: ADMIT Family Medicine; ATTEND Family Medicine
PROC: 0VB08ZZ Excision of Prostate, Via Natural or Artificial Opening Endoscopic (ICD-10-PCS; principal; 2017-03-31 17:30)
DX: N40.1 Benign prostatic hyperplasia with lower urinary tract symptoms (principal); N13.8 Other obstructive and reflux uropathy; N39.0 Urinary tract infection, site not specified; B96.5 Pseudomonas (aeruginosa) (mallei) (pseudomallei) as the cause of diseases classified elsewhere; E11.9 Type 2 diabetes mellitus without complications; I10 Essential (primary) hypertension; R33.8 Other retention of urine; R35.0 Frequency of micturition; E78.5 Hyperlipidemia, unspecified; Z16.24 Resistance to multiple antibiotics; Z96.612 Presence of left artificial shoulder joint; Z79.84 Long term (current) use of oral hypoglycemic drugs; Z96.611 Presence of right artificial shoulder joint; Z87.891 Personal history of nicotine dependence
CPT/HCPCS: 36415; 71010; 80048; 80053; 80061; 80076; 82962; 83036; 83605; 83735; 84153; 84154; 84443; 85025; 85610; 85730; 87040; 88305; 93005; 94664; 96374; J0330; J0713; J1170; J1815; J2270; J2405; J2710; J3010; J7030